=== PATIENT | female | born 1990 | race Caucasian/White ===

== ENCOUNTER 2018-09-10 13:33 | Emergency (ER) | payer SELFPAY | END 2018-09-10 17:29 | disposition home or self-care (01) | LOC: FTE 13:33 | DX: M54.2 Cervicalgia (principal); R51 Headache; M79.602 Pain in left arm; M79.605 Pain in left leg; F17.210 Nicotine dependence, cigarettes, uncomplicated | CPT/HCPCS: 99283 ==